=== PATIENT | male | born 1935 | race African-American/Black ===

== ENCOUNTER 2019-08-20 21:32 | Inpatient (IN) | payer MEDICARE, OTHER ==
[~2019-08-20] VITALS: Ht 177.8 cm; Wt 73.9 kg
[~2019-08-20 21:32] MED LIST: DOCU-150 MT; LINA5TAB MT; OMEP20CA14 MT; RANI150C12 MT; REPA0.5T5 MT; SEVE800T8 MT; TAMS-11 MT; WARF-53 MT
[2019-08-20 23:43] LABS: BASOPHILS % 2.1 % (0.0-2.0); EOSINOPHILS % 0.3 % (0.0-5.0); HEMATOCRIT. 35.4 % (42.0-52.0); HEMOGLOBIN. 11.9 g/dL (14.0-18.0); LYMPHOCYTES % 12.9 % (20.0-50.0); MEAN CORPUSCULAR HEMOGLOBIN 31.2 pg (28.0-32.0); MEAN CORPUSCULAR VOLUME 93.2 fL (80.0-94.0); MEAN PLATELET VOLUME 8.4 fl (7.4-10.4); MONOCYTES % 6.1 % (2.0-8.0); NEUTROPHILS % 78.6 % (40.0-76.0); PLATELET 118 x1000/uL (130-400); RED CELL DISTRIBUTION WIDTH 17.2 % (11.6-14.6)
[2019-08-20] MEDS ORDERED: DILTIAZEM HCL 120MG CAPSULE CD 24HR PO SCH (23:45)
[2019-08-20 23:47] LABS: CHLORIDE 96 mEq/L (98-107)
[2019-08-21] MEDS ORDERED: ACETAMINOPHEN 325MG TABLET PO PRN (07:30)
[2019-08-21] MEDS ORDERED: HYDROCODONE/ACETAMINOPHEN 5/325MG TABLET PO PRN (07:30)
[2019-08-21] MEDS ORDERED: CLONIDINE 0.1MG TABLET PO PRN (07:30)
[2019-08-21] MEDS ORDERED: ONDANSETRON HCL 4MG/2ML INJ IV PRN (07:30)
[2019-08-21] MEDS ORDERED: MAGNESIUM/ALUMINUM HYDROXIDE/SIMETHICONE 30ML UDC PO PRN (07:30)
[2019-08-21 08:45] VITALS: BP 130/65
[2019-08-21 12:00] VITALS: BP 104/45
[2019-08-21] MEDS: DILTIAZEM HCL 30MG TABLET PO SCH ×2 (15:46→21:17)
[2019-08-21 16:00] VITALS: BP 130/61
[2019-08-21 16:37] LABS: INR 1.5; PARTIAL THROMBOPLASTIN TIME 31.2 sec (23.4-31.0)
[2019-08-21 17:11] LABS: PHOSPHORUS 4.9 mg/dL (2.5-4.9)
[2019-08-21 20:00] VITALS: BP 134/80
[2019-08-21] MEDS ORDERED: WARFARIN SODIUM 5MG TABLET PO NR (20:00)
[2019-08-22] VITALS: BP 128/60
[2019-08-22] MEDS: IPRATROPIUM/ALBUTEROL 0.5-3(2.5)MG/3ML NEB HHN PRN ×3 (01:48→20:33)
[2019-08-22 04:00] VITALS: BP 143/68
[2019-08-22] MEDS: DILTIAZEM HCL 30MG TABLET PO SCH ×3 (05:34→21:05)
[2019-08-22 06:07] LABS: INR 1.5; PROTHROMBIN TIME 16.5 sec (9.6-11.0)
[2019-08-22 06:15] LABS: EOSINOPHILS % 0.2 % (0.0-5.0); HEMATOCRIT. 33.1 % (42.0-52.0); LYMPHOCYTES % 11.9 % (20.0-50.0); MEAN CORPUSCULAR HEMOGLOBIN 30.6 pg (28.0-32.0); MEAN CORPUSCULAR VOLUME 91.8 fL (80.0-94.0); MEAN PLATELET VOLUME 8.2 fl (7.4-10.4); MONOCYTES % 7.2 % (2.0-8.0); NEUTROPHILS % 78.7 % (40.0-76.0); PLATELET 126 x1000/uL (130-400); RED CELL DISTRIBUTION WIDTH 17.5 % (11.6-14.6)
[2019-08-22 07:10] LABS: PHOSPHORUS 5.5 mg/dL (2.5-4.9)
[2019-08-22 07:50] LABS: CLARITY URINE CLOUDY (CLEAR); COLOR URINE YELLOW (YELLOW); KETONES URINE NEGATIVE (NEGATIVE); LEUKOCYTE ESTERASE URINE 1+ (NEGATIVE); NITRITE URINE NEGATIVE (NEGATIVE); OCCULT BLOOD URINE NEGATIVE (NEGATIVE); PH URINE 8.5 (4.5-8.0); PROTEIN URINE 3+ (NEGATIVE); SPECIFIC GRAVITY URINE 1.014 (1.005-1.030); UROBILINOGEN URINE 0.2 E.U./dL (0.2-1.0)
[2019-08-22 08:00] VITALS: BP 138/66
[2019-08-22 12:00] VITALS: BP 137/57
[2019-08-22 12:56] LABS: BG BASE EXCESS 1.8 mmol/L (-2.0-2.0); BG CARBOXYHEMOGLOBIN 0.1 % (0.5-1.5); BG DEOXYHEMOGLOBIN 8.9 % (0.0-5.0); BG FRACTION INSPIRED OXYGEN 21; BG HCO3 ACT 25.1 mmol/L (22.0-26.0); BG METHEMOGLOBIN 0.3 % (0.0-1.5); BG OXYGEN SATURATION 91.1 % (92.0-98.5); BG OXYHEMOGLOBIN 90.7 % (94.0-97.0); BG PCO2 34.7 mmHg (35.0-45.0); BG PH 7.478 (7.350-7.450); BG PO2 62.9 mmHg (75.0-100.0); BG SAMPLE SITE RIGHT RADIAL; BG TOTAL HEMOGLOBIN 11.1 g/dL (12.0-18.0); BG VENT MODE ROOM AIR
[2019-08-22 16:00] VITALS: BP 141/68
[2019-08-22 17:24] LABS: INR 1.7; PROTHROMBIN TIME 18.5 sec (9.6-11.0)
[2019-08-22] MEDS ORDERED: WARFARIN SODIUM 5MG TABLET PO NR (18:00)
[2019-08-22 20:23] VITALS: BP 140/68
[2019-08-22] MEDS: ATORVASTATIN CALCIUM 20MG TABLET PO SCH (21:04)
[2019-08-22] MEDS ORDERED: LOSA100T32 PO (21:15)
[2019-08-22] MEDS ORDERED: LORA10TA7 PO (21:15)
[2019-08-23 00:15] VITALS: BP 129/56
[2019-08-23 04:00] VITALS: BP 139/64
[2019-08-23] MEDS: DILTIAZEM HCL 30MG TABLET PO SCH ×3 (06:15→21:36)
[2019-08-23 08:00] VITALS: BP 122/68
[2019-08-23 12:00] VITALS: BP 128/63
[2019-08-23 12:43] LABS: INR 1.9; PROTHROMBIN TIME 20.2 sec (9.6-11.0)
[2019-08-23 12:52] LABS: BASOPHILS % 2.2 % (0.0-2.0); EOSINOPHILS % 0.2 % (0.0-5.0); HEMATOCRIT. 31.1 % (42.0-52.0); HEMOGLOBIN. 10.3 g/dL (14.0-18.0); MEAN CORPUSCULAR HEMOGLOBIN 30.3 pg (28.0-32.0); MEAN PLATELET VOLUME 7.9 fl (7.4-10.4); MONOCYTES % 9.7 % (2.0-8.0); NEUTROPHILS % 79.9 % (40.0-76.0); PLATELET 111 x1000/uL (130-400); RED BLOOD CELL COUNT 3.38 mill/uL (4.7-6.1); RED CELL DISTRIBUTION WIDTH 17.5 % (11.6-14.6)
[2019-08-23 13:27] LABS: CHLORIDE 106 mEq/L (98-107)
[2019-08-23 13:36] LABS: PHOSPHORUS 3.7 mg/dL (2.5-4.9)
[2019-08-23 16:00] VITALS: BP 135/62
[2019-08-23] MEDS: LACTULOSE 20G/30ML UDC PO SCH ×3 (16:45→22:06)
[2019-08-23] MEDS: DOCUSATE SODIUM 100MG CAPSULE PO SCH (17:59)
[2019-08-23] MEDS ORDERED: WARFARIN SODIUM 5MG TABLET PO NR (18:00)
[2019-08-23 18:26] LABS: T4 FREE 1.14 ng/dL (0.76-1.46)
[2019-08-23 20:50] VITALS: BP 143/62
[2019-08-23] MEDS: POLYETHYLENE GLYCOL 3350 (17GM) 1 DOSE PACK PO SCH (21:36)
[2019-08-23] MEDS: ATORVASTATIN CALCIUM 20MG TABLET PO SCH (21:36)
[2019-08-24] VITALS (7 sets, daily range): BP systolic 132–146; BP diastolic 62–74
[2019-08-24] MEDS: DILTIAZEM HCL 30MG TABLET PO SCH ×3 (06:11→21:58)
[2019-08-24 07:06] LABS: INR 1.7; PROTHROMBIN TIME 18.4 sec (9.6-11.0)
[2019-08-24 07:21] LABS: BASOPHILS % 3.3 % (0.0-2.0); EOSINOPHILS % 0.6 % (0.0-5.0); HEMATOCRIT. 32.6 % (42.0-52.0); HEMOGLOBIN. 10.9 g/dL (14.0-18.0); MEAN CORPUSCULAR HEMOGLOBIN 30.8 pg (28.0-32.0); MEAN CORPUSCULAR VOLUME 92.2 fL (80.0-94.0); MONOCYTES % 8.5 % (2.0-8.0); NEUTROPHILS % 76.6 % (40.0-76.0); RED BLOOD CELL COUNT 3.54 mill/uL (4.7-6.1); RED CELL DISTRIBUTION WIDTH 16.9 % (11.6-14.6)
[2019-08-24 08:00] LABS: CHLORIDE 105 mEq/L (98-107)
[2019-08-24 08:09] LABS: PHOSPHORUS 4.9 mg/dL (2.5-4.9)
[2019-08-24] MEDS: DOCUSATE SODIUM 100MG CAPSULE PO SCH ×2 (08:16→17:14)
[2019-08-24 11:11] LABS: PLATELET 115 x1000/uL (130-400)
[2019-08-24 16:19] LABS: HEPATITIS B SURFACE ANTIGEN NEGATIVE
[2019-08-24 16:48] LABS: HEPATITIS A AB IGM NEGATIVE (NEGATIVE)
[2019-08-24] MEDS ORDERED: WARFARIN SODIUM 3MG TABLET PO NR (18:00)
[2019-08-24] MEDS: POLYETHYLENE GLYCOL 3350 (17GM) 1 DOSE PACK PO SCH (21:58)
[2019-08-24] MEDS: ATORVASTATIN CALCIUM 20MG TABLET PO SCH (21:58)
[2019-08-28] MEDS ORDERED: ATOR20TA PO (10:39)
[2019-08-28] MEDS ORDERED: POLY17PO3 PO (10:39)
[2019-08-28] MEDS ORDERED: DILT30TA38 PO (10:39)
== END 2019-08-24 22:40 | DRG 308 ==
LOC: ER 21:32 → 5WST 08-21 01:23 → EDBEDREQDT 08-21 01:25 → EDBEDREQ 08-21 01:25 → EDBEDREQTM 08-21 01:25 → ENRESERV 08-21 07:34 → 6WST 08-21 15:55
PROVIDERS: ADMIT Internal Medicine; ATTEND Internal Medicine
PROC: 5A1D70Z Performance of Urinary Filtration, Intermittent, Less than 6 Hours Per Day (ICD-10-PCS; principal; 2019-08-22)
PROC: 5A1D70Z Performance of Urinary Filtration, Intermittent, Less than 6 Hours Per Day (ICD-10-PCS; 2019-08-23)
PROC: 5A1D70Z Performance of Urinary Filtration, Intermittent, Less than 6 Hours Per Day (ICD-10-PCS; 2019-08-24)
DX: I47.1 Supraventricular tachycardia (principal); J96.00 Acute respiratory failure, unspecified whether with hypoxia or hypercapnia; N18.6 End stage renal disease; I13.2 Hypertensive heart and chronic kidney disease with heart failure and with stage 5 chronic kidney disease, or end stage renal disease; I50.20 Unspecified systolic (congestive) heart failure; D68.59 Other primary thrombophilia; E87.1 Hypo-osmolality and hyponatremia; N39.0 Urinary tract infection, site not specified; I42.9 Cardiomyopathy, unspecified; D69.6 Thrombocytopenia, unspecified; E11.22 Type 2 diabetes mellitus with diabetic chronic kidney disease; E11.51 Type 2 diabetes mellitus with diabetic peripheral angiopathy without gangrene; E11.621 Type 2 diabetes mellitus with foot ulcer; E11.65 Type 2 diabetes mellitus with hyperglycemia; E78.00 Pure hypercholesterolemia, unspecified; E78.5 Hyperlipidemia, unspecified; K21.9 Gastro-esophageal reflux disease without esophagitis; L97.529 Non-pressure chronic ulcer of other part of left foot with unspecified severity; N40.0 Benign prostatic hyperplasia without lower urinary tract symptoms; H53.002 Unspecified amblyopia, left eye; D63.8 Anemia in other chronic diseases classified elsewhere; R53.81 Other malaise; D64.9 Anemia, unspecified; R26.89 Other abnormalities of gait and mobility; I08.0 Rheumatic disorders of both mitral and aortic valves; M48.061 Spinal stenosis, lumbar region without neurogenic claudication; M48.02 Spinal stenosis, cervical region; Z99.2 Dependence on renal dialysis; Z86.718 Personal history of other venous thrombosis and embolism; Z82.49 Family history of ischemic heart disease and other diseases of the circulatory system; Z79.01 Long term (current) use of anticoagulants; Z79.899 Other long term (current) drug therapy; Z82.3 Family history of stroke; Z79.51 Long term (current) use of inhaled steroids
CPT/HCPCS: 36415; 36600; 70551; 71045; 72141; 72148; 73630; 76700; 80048; 80053; 80061; 81003; 82375; 82550; 82607; 82746; 82805; 83036; 83735; 83880; 84100; 84439; 84443; 84481; 84484; 85025; 86705; 86709; 86803; 87340; 92523; 92610; 93005; 93306; 94640; 97162; 97166; 99291

== ENCOUNTER 2019-08-28 12:19 | Inpatient (IN) | payer MEDICARE, OTHER ==
[~2019-08-28] VITALS: Ht 177.8 cm; Wt 76.7 kg
[2019-08-28 12:00] VITALS: BP 124/55
[~2019-08-28 12:19] MED LIST changes: +ATOR20TA PO; +DILT30TA38 PO; +LORA10TA7 PO; +LOSA100T32 PO; +POLY17PO3 PO; -RANI150C12 MT; -REPA0.5T5 MT
[2019-08-28 13:33] VITALS: BP 124/55
[2019-08-28 16:00] VITALS: BP 133/59
[2019-08-28] MEDS ORDERED: GUAIFENESIN 200MG/10ML SUGAR FREE UDC PO PRN (17:45)
[2019-08-28] MEDS ORDERED: CLONIDINE 0.1MG TABLET PO PRN (17:45)
[2019-08-28] MEDS ORDERED: ACETAMINOPHEN 325MG TABLET PO PRN (17:45)
[2019-08-28] MEDS ORDERED: LORAZEPAM 0.5MG TABLET PO PRN (17:45)
[2019-08-28] MEDS ORDERED: HYDROCODONE/ACETAMINOPHEN 5/325MG TABLET PO PRN (17:45)
[2019-08-28] MEDS ORDERED: ONDANSETRON HCL 4MG/2ML INJ IV PRN (17:45)
[2019-08-28 18:51] LABS: HEMATOCRIT. 28.8 % (42.0-52.0); HEMOGLOBIN. 9.7 g/dL (14.0-18.0); MEAN CORPUSCULAR HEMOGLOBIN 30.3 pg (28.0-32.0); MEAN CORPUSCULAR VOLUME 89.6 fL (80.0-94.0); MEAN PLATELET VOLUME 8.8 fl (7.4-10.4); PLATELET 102 x1000/uL (130-400); RED BLOOD CELL COUNT 3.21 mill/uL (4.7-6.1); RED CELL DISTRIBUTION WIDTH 16.9 % (11.6-14.6)
[2019-08-28 18:54] LABS: INR 2.7; PROTHROMBIN TIME 28.1 sec (9.6-11.0)
[2019-08-28 20:00] VITALS: BP 120/57
[2019-08-28 20:26] LABS: PLATELET ESTIMATE DECREASED
[2019-08-28] MEDS ORDERED: POLYETHYLENE GLYCOL 3350 (17GM) 1 DOSE PACK PO SCH (21:00)
[2019-08-28] MEDS ORDERED: ATORVASTATIN CALCIUM 20MG TABLET PO SCH (21:00)
[2019-08-28] MEDS: DILTIAZEM HCL 30MG TABLET PO SCH (21:55)
[2019-08-29] VITALS (52 sets, daily range): BP systolic 52–259; BP diastolic 31–119
[2019-08-29] MEDS ORDERED: DEXT 5%/LACTATED RINGERS 1,000 ML IV SCH
[2019-08-29] MEDS: DILTIAZEM HCL 30MG TABLET PO SCH ×2 (05:32→14:00)
[2019-08-29] MEDS ORDERED: NORMAL SALINE 0.9% 10 ML SYR ONE (08:46)
[2019-08-29] MEDS ORDERED: THROMBIN (BOVINE) 5000 UNITS/VIAL TOP ONE ×2 (08:46→08:47)
[2019-08-29] MEDS ORDERED: LIDOCAINE HCL/EPINEPHRINE 1%-EPI 1:100,000 20 ML VIAL ONE (08:47)
[2019-08-29] MEDS ORDERED: BACITRACIN 50,000 UNITS/VIAL ONE (08:47)
[2019-08-29] MEDS ORDERED: LIDOCAINE HCL 1% 20ML VIAL (Pyxis) INJ ONE (08:53)
[2019-08-29] MEDS ORDERED: DOCUSATE SODIUM 100MG CAPSULE PO SCH (09:00)
[2019-08-29] MEDS ORDERED: MIDAZOLAM HCL 2 MG/2 ML VIAL ONE (12:09)
[2019-08-29] MEDS ORDERED: NEOSTIGMINE METHYLSULFATE 1MG/ML 10 ML VIAL ONE ×2 (12:09→16:15)
[2019-08-29] MEDS ORDERED: PROPOFOL 200MG/20ML VIAL IV ONE ×2 (12:09→16:45)
[2019-08-29] MEDS ORDERED: FENTANYL CITRATE/PF 50MCG/ML 2ML VIAL ONE (12:09)
[2019-08-29] MEDS ORDERED: ROCURONIUM BROMIDE 10MG/ML VIAL 5ML IV ONE (12:09)
[2019-08-29] MEDS ORDERED: GLYCOPYRROLATE 0.2 MG/ML 2ML VIAL ONE ×2 (12:10→16:16)
[2019-08-29] MEDS ORDERED: HYDROMORPHONE HCL/PF 2MG/ML (OR) ONE (12:39)
[2019-08-29] MEDS ORDERED: EPHEDRINE SULFATE 50MG/ML VIAL ONE (12:56)
[2019-08-29] MEDS ORDERED: LABETALOL HCL 5MG/ML VIAL 20ML IV ONE (12:56)
[2019-08-29] MEDS ORDERED: LIDOCAINE HCL/PF 1% 10 MG/ML 5ML VIAL ONE (12:56)
[2019-08-29] MEDS ORDERED: CEFAZOLIN SODIUM 1000MG/VIAL ONE (12:56)
[2019-08-29] MEDS ORDERED: SODIUM CHLORIDE 0.9% 10ML VIAL ONE (12:56)
[2019-08-29] MEDS: MORPHINE SULFATE 4 MG/ML CPJ (NOT FOR IM USE) IV PRN (14:53)
[2019-08-29] MEDS: DEXT 5%/0.9% NACL 1,000 ML IV SCH (15:10)
[2019-08-29] MEDS: NICARDIPINE 100 MG in SODIUM CHLORIDE 0.9% 60 ML IV PRN (15:12)
[2019-08-29] MEDS ORDERED: NALOXONE HCL 0.4 MG/ML 1ML VIAL ONE (15:49)
[2019-08-29 17:33] LABS: BG BASE EXCESS -3.4 mmol/L (-2.0-2.0); BG CARBOXYHEMOGLOBIN 0.3 % (0.5-1.5); BG DEOXYHEMOGLOBIN 2.3 % (0.0-5.0); BG FRACTION INSPIRED OXYGEN 60; BG HCO3 ACT 22.5 mmol/L (22.0-26.0); BG METHEMOGLOBIN 0.1 % (0.0-1.5); BG OXYGEN SATURATION 97.7 % (92.0-98.5); BG OXYHEMOGLOBIN 97.3 % (94.0-97.0); BG PCO2 44.1 mmHg (35.0-45.0); BG PH 7.325 (7.350-7.450); BG PO2 121.5 mmHg (75.0-100.0); BG SAMPLE SITE A-LINE; BG TIDAL VOLUME(mL) 500 mL; BG TOTAL HEMOGLOBIN 10.7 g/dL (12.0-18.0); BG VENT MODE VENT - A/C; BG VENT RATE 12 set
[2019-08-29] MEDS: PROPOFOL 10MG/ML 100ML 100 ML IV PRN (17:50)
[2019-08-29 20:30] LABS: INR 1.5; PROTHROMBIN TIME 16.1 sec (9.6-11.0)
[2019-08-29] MEDS ORDERED: CEFAZOLIN SODIUM 1000MG/VIAL IV SCH (22:00)
[2019-08-29] MEDS ORDERED: CEFAZOLIN 1000MG PREMIX 50 ML IV SCH (22:00)
[2019-08-30] VITALS (113 sets, daily range): BP systolic 104–222; BP diastolic 21–121
[2019-08-30] MEDS: PROPOFOL 10MG/ML 100ML 100 ML IV PRN ×3 (01:14→18:46)
[2019-08-30 05:34] LABS: BASOPHILS % 1.4 % (0.0-2.0); EOSINOPHILS % 0.6 % (0.0-5.0); HEMATOCRIT. 25.4 % (42.0-52.0); HEMOGLOBIN. 8.6 g/dL (14.0-18.0); LYMPHOCYTES % 7.6 % (20.0-50.0); MEAN CORPUSCULAR HEMOGLOBIN 30.8 pg (28.0-32.0); MEAN CORPUSCULAR VOLUME 90.7 fL (80.0-94.0); MEAN PLATELET VOLUME 8.7 fl (7.4-10.4); MONOCYTES % 9.3 % (2.0-8.0); NEUTROPHILS % 81.1 % (40.0-76.0); PLATELET 84 x1000/uL (130-400); RED CELL DISTRIBUTION WIDTH 16.4 % (11.6-14.6)
[2019-08-30 05:35] LABS: CHLORIDE 104 mEq/L (98-107)
[2019-08-30 05:45] LABS: INR 1.4; PROTHROMBIN TIME 14.8 sec (9.6-11.0)
[2019-08-30] MEDS: NICARDIPINE 100 MG in SODIUM CHLORIDE 0.9% 60 ML IV PRN ×2 (06:15→18:47)
[2019-08-30 07:34] LABS: BG BASE EXCESS -3.4 mmol/L (-2.0-2.0); BG CARBOXYHEMOGLOBIN 0.3 % (0.5-1.5); BG DEOXYHEMOGLOBIN 1.3 % (0.0-5.0); BG FRACTION INSPIRED OXYGEN 60; BG HCO3 ACT 21.1 mmol/L (22.0-26.0); BG METHEMOGLOBIN 0.5 % (0.0-1.5); BG OXYGEN SATURATION 98.7 % (92.0-98.5); BG OXYHEMOGLOBIN 97.9 % (94.0-97.0); BG PCO2 35.9 mmHg (35.0-45.0); BG PH 7.387 (7.350-7.450); BG PO2 167.9 mmHg (75.0-100.0); BG SAMPLE SITE A-LINE; BG TIDAL VOLUME(mL) 500 mL; BG TOTAL HEMOGLOBIN 11.6 g/dL (12.0-18.0); BG VENT MODE VENT - A/C; BG VENT RATE 12 set
[2019-08-30] MEDS: DEXT 5%/0.9% NACL 1,000 ML IV SCH (11:26)
[2019-08-30] MEDS: PIPERACILLIN/TAZOBACTAM 2.25 G in DEXTROSE 5% WATER 50 ML IV SCH ×3 (13:54→23:58)
[2019-08-30] MEDS: MORPHINE SULFATE 4 MG/ML CPJ (NOT FOR IM USE) IV PRN (19:48)
[2019-08-31] VITALS (88 sets, daily range): BP systolic 108–199; BP diastolic 34–155
[2019-08-31] MEDS: PROPOFOL 10MG/ML 100ML 100 ML IV PRN ×2 (00:02→08:44)
[2019-08-31] MEDS: NICARDIPINE 100 MG in SODIUM CHLORIDE 0.9% 60 ML IV PRN ×2 (05:23→16:05)
[2019-08-31] MEDS: PIPERACILLIN/TAZOBACTAM 2.25 G in DEXTROSE 5% WATER 50 ML IV SCH ×4 (05:34→23:16)
[2019-08-31] MEDS: DEXT 5%/0.9% NACL 1,000 ML IV SCH (05:34)
[2019-08-31] MEDS: IPRATROPIUM/ALBUTEROL 0.5-3(2.5)MG/3ML NEB HHN PRN (08:31)
[2019-08-31] MEDS: DIPHENHYDRAMINE 50MG/ML VIAL IV PRN ×2 (10:57→14:39)
[2019-08-31] MEDS: IPRATROPIUM/ALBUTEROL 0.5-3(2.5)MG/3ML NEB HHN SCH ×2 (12:41→20:45)
[2019-08-31 14:02] LABS: BG BASE EXCESS -1.9 mmol/L (-2.0-2.0); BG CARBOXYHEMOGLOBIN 0.3 % (0.5-1.5); BG DEOXYHEMOGLOBIN 4.6 % (0.0-5.0); BG FRACTION INSPIRED OXYGEN 40; BG HCO3 ACT 21.5 mmol/L (22.0-26.0); BG OXYGEN SATURATION 95.4 % (92.0-98.5); BG OXYHEMOGLOBIN 95.1 % (94.0-97.0); BG PCO2 31.5 mmHg (35.0-45.0); BG PH 7.451 (7.350-7.450); BG PO2 78.5 mmHg (75.0-100.0); BG PRESSURE SUPPORT 8; BG SAMPLE SITE A-LINE; BG TOTAL HEMOGLOBIN 10.5 g/dL (12.0-18.0); BG VENT MODE VENT - CPAP
[2019-08-31] MEDS ORDERED: PROPOFOL 10MG/ML 100ML 100 ML IV PRN (14:30)
[2019-08-31] MEDS: MORPHINE SULFATE 4 MG/ML CPJ (NOT FOR IM USE) IV PRN (14:40)
[2019-08-31] MEDS: DIPHENHYDRAMINE 50MG/ML VIAL IV SCH ×2 (20:23→23:17)
[2019-09-01] VITALS (117 sets, daily range): BP systolic 96–209; BP diastolic 10–139
[2019-09-01] MEDS: IPRATROPIUM/ALBUTEROL 0.5-3(2.5)MG/3ML NEB HHN SCH ×5 (00:18→19:50)
[2019-09-01] MEDS: DIPHENHYDRAMINE 50MG/ML VIAL IV SCH ×4 (03:20→16:11)
[2019-09-01] MEDS: DEXT 5%/0.9% NACL 1,000 ML IV SCH ×2 (05:00→23:29)
[2019-09-01] MEDS: PIPERACILLIN/TAZOBACTAM 2.25 G in DEXTROSE 5% WATER 50 ML IV SCH ×4 (05:02→23:29)
[2019-09-01 05:59] LABS: HEMATOCRIT. 23.5 % (42.0-52.0); MEAN CORPUSCULAR HEMOGLOBIN 30.6 pg (28.0-32.0); MEAN CORPUSCULAR VOLUME 90.3 fL (80.0-94.0); MEAN PLATELET VOLUME 9.1 fl (7.4-10.4); PLATELET 84 x1000/uL (130-400); RED CELL DISTRIBUTION WIDTH 16.7 % (11.6-14.6)
[2019-09-01 06:04] LABS: CHLORIDE 105 mEq/L (98-107)
[2019-09-01 06:11] LABS: PHOSPHORUS 6.3 mg/dL (2.5-4.9)
[2019-09-01 06:12] LABS: LDL CHOLESTEROL 51 mg/dL (5-100)
[2019-09-01 06:14] LABS: HDL CHOLESTEROL 31 mg/dL (40-59)
[2019-09-01 09:42] LABS: PLATELET ESTIMATE DECREASED
[2019-09-01] MEDS: ACETYLCYSTEINE 100MG/ML 10% VIAL 4ML INH SCH ×2 (10:00→19:51)
[2019-09-01] MEDS: CARVEDILOL 3.125 MG TABLET PO SCH ×2 (10:09→20:30)
[2019-09-01] MEDS ORDERED: MORPHINE SULFATE 2 MG/ML CPJ (NOT FOR IM USE) IV SCH (10:30)
[2019-09-01 11:11] LABS: BG BASE EXCESS -6.4 mmol/L (-2.0-2.0); BG CARBOXYHEMOGLOBIN 0.3 % (0.5-1.5); BG DEOXYHEMOGLOBIN 11.2 % (0.0-5.0); BG FRACTION INSPIRED OXYGEN 35; BG HCO3 ACT 19.9 mmol/L (22.0-26.0); BG METHEMOGLOBIN 0.1 % (0.0-1.5); BG OXYGEN SATURATION 88.8 % (92.0-98.5); BG OXYHEMOGLOBIN 88.4 % (94.0-97.0); BG PCO2 42.4 mmHg (35.0-45.0); BG PH 7.289 (7.350-7.450); BG PO2 66.1 mmHg (75.0-100.0); BG PRESSURE SUPPORT 8; BG SAMPLE SITE A-LINE; BG TOTAL HEMOGLOBIN 11.2 g/dL (12.0-18.0); BG VENT MODE VENT - CPAP
[2019-09-01] MEDS: MORPHINE SULFATE 4 MG/ML CPJ (NOT FOR IM USE) IV PRN (20:31)
[2019-09-02] VITALS (94 sets, daily range): BP systolic 61–205; BP diastolic 32–160
[2019-09-02] MEDS: MORPHINE SULFATE 4 MG/ML CPJ (NOT FOR IM USE) IV PRN (00:18)
[2019-09-02] MEDS: DIPHENHYDRAMINE 50MG/ML VIAL IV SCH ×6 (00:39→20:42)
[2019-09-02] MEDS: IPRATROPIUM/ALBUTEROL 0.5-3(2.5)MG/3ML NEB HHN SCH ×4 (01:52→20:20)
[2019-09-02] MEDS: NICARDIPINE 100 MG in SODIUM CHLORIDE 0.9% 60 ML IV PRN (03:22)
[2019-09-02 05:47] LABS: BASOPHILS % 3.7 % (0.0-2.0); EOSINOPHILS % 0.3 % (0.0-5.0); HEMATOCRIT. 25.8 % (42.0-52.0); HEMOGLOBIN. 8.6 g/dL (14.0-18.0); LYMPHOCYTES % 8.9 % (20.0-50.0); MEAN CORPUSCULAR HEMOGLOBIN 30.3 pg (28.0-32.0); MEAN PLATELET VOLUME 8.6 fl (7.4-10.4); MONOCYTES % 8.5 % (2.0-8.0); NEUTROPHILS % 78.6 % (40.0-76.0); PLATELET 96 x1000/uL (130-400); RED BLOOD CELL COUNT 2.83 mill/uL (4.7-6.1); RED CELL DISTRIBUTION WIDTH 16.8 % (11.6-14.6)
[2019-09-02 06:01] LABS: PHOSPHORUS 5.9 mg/dL (2.5-4.9)
[2019-09-02] MEDS: PIPERACILLIN/TAZOBACTAM 2.25 G in DEXTROSE 5% WATER 50 ML IV SCH ×3 (06:02→17:59)
[2019-09-02] MEDS: CARVEDILOL 3.125 MG TABLET PO SCH (08:37)
[2019-09-02] MEDS: ACETYLCYSTEINE 100MG/ML 10% VIAL 4ML INH SCH ×2 (08:53→21:19)
[2019-09-02] MEDS: METHYLPREDNISOLONE SOD SUCC 40 MG/ML VIAL IV SCH ×2 (09:54→15:47)
[2019-09-02] MEDS ORDERED: HYDRALAZINE 20MG/ML VIAL IV PRN (10:00)
[2019-09-02] MEDS ORDERED: CARVEDILOL 6.25 MG TABLET PO SCH (10:00)
[2019-09-02 10:40] LABS: BG BASE EXCESS -3.8 mmol/L (-2.0-2.0); BG CPAP (cmH2O) 0 cm(H2O); BG DEOXYHEMOGLOBIN 6.4 % (0.0-5.0); BG HCO3 ACT 20.1 mmol/L (22.0-26.0); BG METHEMOGLOBIN 0.4 % (0.0-1.5); BG OXYGEN SATURATION 93.6 % (92.0-98.5); BG OXYHEMOGLOBIN 93.2 % (94.0-97.0); BG PCO2 31.6 mmHg (35.0-45.0); BG PH 7.422 (7.350-7.450); BG PO2 72.2 mmHg (75.0-100.0); BG SAMPLE SITE A-LINE; BG TOTAL HEMOGLOBIN 7.8 g/dL (12.0-18.0); BG VENT MODE VENT - CPAP
[2019-09-02] MEDS: LOSARTAN POTASSIUM 25 MG TABLET PO SCH (11:05)
[2019-09-02] MEDS ORDERED: RACEPINEPHRINE 2.25% 0.5ML NEB VIAL HHN NR (11:15)
[2019-09-02] MEDS ORDERED: RACEPINEPHRINE 2.25% 0.5ML NEB VIAL HHN PRN (11:15)
[2019-09-02] MEDS: DEXT 5%/0.9% NACL 1,000 ML IV SCH (17:59)
[2019-09-02] MEDS: CARVEDILOL 12.5MG TABLET PO SCH (20:43)
[2019-09-03] VITALS (138 sets, daily range): BP systolic -2–170; BP diastolic -2–80
[2019-09-03] MEDS: DIPHENHYDRAMINE 50MG/ML VIAL IV SCH ×7 (00:29→23:16)
[2019-09-03] MEDS: METHYLPREDNISOLONE SOD SUCC 40 MG/ML VIAL IV SCH ×4 (00:29→21:02)
[2019-09-03] MEDS: PIPERACILLIN/TAZOBACTAM 2.25 G in DEXTROSE 5% WATER 50 ML IV SCH ×5 (00:37→23:16)
[2019-09-03] MEDS: IPRATROPIUM/ALBUTEROL 0.5-3(2.5)MG/3ML NEB HHN SCH ×4 (01:01→20:41)
[2019-09-03 05:38] LABS: HEMATOCRIT. 24.3 % (42.0-52.0); HEMOGLOBIN. 8.1 g/dL (14.0-18.0); MEAN CORPUSCULAR HEMOGLOBIN 30.4 pg (28.0-32.0); MEAN CORPUSCULAR VOLUME 91.7 fL (80.0-94.0); MEAN PLATELET VOLUME 8.9 fl (7.4-10.4); PLATELET 103 x1000/uL (130-400); RED BLOOD CELL COUNT 2.65 mill/uL (4.7-6.1); RED CELL DISTRIBUTION WIDTH 16.6 % (11.6-14.6)
[2019-09-03 07:48] LABS: PLATELET ESTIMATE SLIGHTLY DECREASED
[2019-09-03] MEDS: ACETYLCYSTEINE 100MG/ML 10% VIAL 4ML INH SCH ×2 (07:59→20:41)
[2019-09-03] MEDS: CARVEDILOL 12.5MG TABLET PO SCH ×2 (09:00→20:58)
[2019-09-03 11:25] LABS: BG BASE EXCESS -1.1 mmol/L (-2.0-2.0); BG CARBOXYHEMOGLOBIN 0.3 % (0.5-1.5); BG FRACTION INSPIRED OXYGEN 35; BG HCO3 ACT 22.3 mmol/L (22.0-26.0); BG METHEMOGLOBIN 0.3 % (0.0-1.5); BG OXYHEMOGLOBIN 97.4 % (94.0-97.0); BG PCO2 32.3 mmHg (35.0-45.0); BG PH 7.457 (7.350-7.450); BG PO2 113.5 mmHg (75.0-100.0); BG SAMPLE SITE A-LINE; BG TOTAL HEMOGLOBIN 9.1 g/dL (12.0-18.0); BG VENT MODE MASK - AEROSOL
[2019-09-03] MEDS: LOSARTAN POTASSIUM 25 MG TABLET PO SCH (12:19)
[2019-09-03] MEDS: DEXT 5%/0.9% NACL 1,000 ML IV SCH ×2 (13:58→22:59)
[2019-09-03] MEDS: EPOETIN ALFA 4000UNITS/ML VIAL SUBCUT SCH (20:58)
[2019-09-04] VITALS (88 sets, daily range): BP systolic 95–229; BP diastolic 29–95
[2019-09-04] MEDS: IPRATROPIUM/ALBUTEROL 0.5-3(2.5)MG/3ML NEB HHN SCH ×4 (01:58→19:53)
[2019-09-04] MEDS: DIPHENHYDRAMINE 50MG/ML VIAL IV SCH ×6 (03:13→23:37)
[2019-09-04 05:32] LABS: HEMATOCRIT. 23.3 % (42.0-52.0); HEMOGLOBIN. 7.8 g/dL (14.0-18.0); MEAN CORPUSCULAR HEMOGLOBIN 30.5 pg (28.0-32.0); MEAN CORPUSCULAR VOLUME 90.9 fL (80.0-94.0); MEAN PLATELET VOLUME 8.8 fl (7.4-10.4); PLATELET 97 x1000/uL (130-400); RED BLOOD CELL COUNT 2.56 mill/uL (4.7-6.1); RED CELL DISTRIBUTION WIDTH 16.8 % (11.6-14.6)
[2019-09-04] MEDS: PIPERACILLIN/TAZOBACTAM 2.25 G in DEXTROSE 5% WATER 50 ML IV SCH ×4 (06:01→23:37)
[2019-09-04] MEDS: METHYLPREDNISOLONE SOD SUCC 40 MG/ML VIAL IV SCH (06:01)
[2019-09-04 08:20] LABS: BG BASE EXCESS -3.5 mmol/L (-2.0-2.0); BG CARBOXYHEMOGLOBIN 0.2 % (0.5-1.5); BG DEOXYHEMOGLOBIN 2.9 % (0.0-5.0); BG FRACTION INSPIRED OXYGEN 28; BG HCO3 ACT 20.9 mmol/L (22.0-26.0); BG METHEMOGLOBIN 0.1 % (0.0-1.5); BG OXYGEN SATURATION 97.1 % (92.0-98.5); BG OXYHEMOGLOBIN 96.8 % (94.0-97.0); BG PH 7.406 (7.350-7.450); BG PO2 105.7 mmHg (75.0-100.0); BG SAMPLE SITE A-LINE; BG TOTAL HEMOGLOBIN 6.8 g/dL (12.0-18.0); BG VENT MODE NASAL CANNULA
[2019-09-04] MEDS: ACETYLCYSTEINE 100MG/ML 10% VIAL 4ML INH SCH (08:31)
[2019-09-04] MEDS: CARVEDILOL 12.5MG TABLET PO SCH ×2 (09:00→20:57)
[2019-09-04 09:52] LABS: PLATELET ESTIMATE DECREASED
[2019-09-04] MEDS ORDERED: DEXTROSE 50% WATER 50ML SYRINGE IV PRN (10:00)
[2019-09-04] MEDS: BLOOD SUGAR DIAGNOSTIC STRIP TEST SCH ×3 (11:30→20:47)
[2019-09-04] MEDS: LOSARTAN POTASSIUM 25 MG TABLET PO SCH (13:39)
[2019-09-04] MEDS: INSULIN LISPRO 100 UNITS/ML SUBCUT SCH ×3 (13:43→20:56)
[2019-09-05] VITALS (26 sets, daily range): BP systolic 106–134; BP diastolic 36–102
[2019-09-05] MEDS: IPRATROPIUM/ALBUTEROL 0.5-3(2.5)MG/3ML NEB HHN SCH ×4 (00:13→20:44)
[2019-09-05] MEDS: ACETYLCYSTEINE 100MG/ML 10% VIAL 4ML INH SCH ×3 (00:13→20:45)
[2019-09-05] MEDS: DIPHENHYDRAMINE 50MG/ML VIAL IV SCH ×5 (03:06→20:13)
[2019-09-05 05:32] LABS: BASOPHILS % 0.1 % (0.0-2.0); HEMOGLOBIN. 7.9 g/dL (14.0-18.0); LYMPHOCYTES % 9.1 % (20.0-50.0); MEAN CORPUSCULAR HEMOGLOBIN 30.5 pg (28.0-32.0); MEAN CORPUSCULAR VOLUME 91.9 fL (80.0-94.0); MEAN PLATELET VOLUME 9.3 fl (7.4-10.4); NEUTROPHILS % 80.8 % (40.0-76.0); PLATELET 99 x1000/uL (130-400); RED BLOOD CELL COUNT 2.61 mill/uL (4.7-6.1); RED CELL DISTRIBUTION WIDTH 16.7 % (11.6-14.6)
[2019-09-05] MEDS: PIPERACILLIN/TAZOBACTAM 2.25 G in DEXTROSE 5% WATER 50 ML IV SCH ×3 (05:43→22:14)
[2019-09-05] MEDS: BLOOD SUGAR DIAGNOSTIC STRIP TEST SCH ×5 (05:43→22:01)
[2019-09-05] MEDS: INSULIN LISPRO 100 UNITS/ML SUBCUT SCH ×4 (05:44→22:10)
[2019-09-05 06:43] LABS: PHOSPHORUS 8.6 mg/dL (2.5-4.9)
[2019-09-05] MEDS: CARVEDILOL 12.5MG TABLET PO SCH ×2 (08:45→22:09)
[2019-09-05] MEDS ORDERED: METHYLPREDNISOLONE SOD SUCC 40 MG/ML VIAL IV SCH (09:00)
[2019-09-05] MEDS ORDERED: PREDNISONE 10MG TABLET PO SCH (09:00)
[2019-09-05] MEDS: SEVELAMER CARBONATE 800 MG TABLET PO SCH ×2 (12:26→17:50)
[2019-09-05] MEDS: LOSARTAN POTASSIUM 25 MG TABLET PO SCH (12:26)
[2019-09-06] VITALS: BP 125/58
[2019-09-06] MEDS: DIPHENHYDRAMINE 50MG/ML VIAL IV SCH ×7 (00:20→23:55)
[2019-09-06] MEDS: IPRATROPIUM/ALBUTEROL 0.5-3(2.5)MG/3ML NEB HHN SCH ×4 (02:19→21:18)
[2019-09-06 04:00] VITALS: BP 123/50
[2019-09-06] MEDS: PIPERACILLIN/TAZOBACTAM 2.25 G in DEXTROSE 5% WATER 50 ML IV SCH (06:33)
[2019-09-06] MEDS: BLOOD SUGAR DIAGNOSTIC STRIP TEST SCH ×4 (06:40→21:00)
[2019-09-06 07:40] LABS: BASOPHILS % 0.3 % (0.0-2.0); EOSINOPHILS % 0.1 % (0.0-5.0); HEMATOCRIT. 24.8 % (42.0-52.0); HEMOGLOBIN. 8.5 g/dL (14.0-18.0); LYMPHOCYTES % 9.5 % (20.0-50.0); MEAN CORPUSCULAR HEMOGLOBIN 30.8 pg (28.0-32.0); MEAN CORPUSCULAR VOLUME 89.9 fL (80.0-94.0); MONOCYTES % 13.5 % (2.0-8.0); NEUTROPHILS % 76.6 % (40.0-76.0); RED BLOOD CELL COUNT 2.76 mill/uL (4.7-6.1); RED CELL DISTRIBUTION WIDTH 16.6 % (11.6-14.6)
[2019-09-06 08:00] VITALS: BP 116/46
[2019-09-06] MEDS: CARVEDILOL 12.5MG TABLET PO SCH ×2 (08:50→20:49)
[2019-09-06] MEDS: SEVELAMER CARBONATE 800 MG TABLET PO SCH ×3 (08:50→17:21)
[2019-09-06] MEDS: INSULIN LISPRO 100 UNITS/ML SUBCUT SCH ×4 (08:51→21:20)
[2019-09-06 09:39] LABS: PLATELET 94 x1000/uL (130-400)
[2019-09-06] MEDS: ACETYLCYSTEINE 100MG/ML 10% VIAL 4ML INH SCH (09:56)
[2019-09-06] MEDS: LOSARTAN POTASSIUM 25 MG TABLET PO SCH (11:21)
[2019-09-06] MEDS: ACETAMINOPHEN 325MG TABLET PO PRN ×2 (11:22→17:41)
[2019-09-06 12:00] VITALS: BP 114/51
[2019-09-06 13:57] LABS: CHLORIDE 100 mEq/L (98-107)
[2019-09-06 15:01] LABS: PHOSPHORUS 8.9 mg/dL (2.5-4.9)
[2019-09-06 16:00] VITALS: BP 121/42
[2019-09-06 20:00] VITALS: BP 128/63
[2019-09-06] MEDS: EPOETIN ALFA 4000UNITS/ML VIAL SUBCUT SCH (21:09)
[2019-09-07] VITALS: BP 125/67
[2019-09-07] MEDS: DIPHENHYDRAMINE 50MG/ML VIAL IV SCH ×5 (04:24→20:00)
[2019-09-07] MEDS: IPRATROPIUM/ALBUTEROL 0.5-3(2.5)MG/3ML NEB HHN SCH ×4 (04:25→20:58)
[2019-09-07 04:45] VITALS: BP 142/68
[2019-09-07] MEDS: BLOOD SUGAR DIAGNOSTIC STRIP TEST SCH ×4 (06:50→22:30)
[2019-09-07 07:24] LABS: BASOPHILS % 0.2 % (0.0-2.0); EOSINOPHILS % 1.4 % (0.0-5.0); HEMATOCRIT. 26.9 % (42.0-52.0); LYMPHOCYTES % 11.6 % (20.0-50.0); MEAN CORPUSCULAR HEMOGLOBIN 30.6 pg (28.0-32.0); MEAN CORPUSCULAR VOLUME 91.5 fL (80.0-94.0); MONOCYTES % 11.8 % (2.0-8.0); RED BLOOD CELL COUNT 2.95 mill/uL (4.7-6.1)
[2019-09-07 07:38] LABS: PLATELET 100 x1000/uL (130-400)
[2019-09-07 07:39] LABS: MEAN PLATELET VOLUME 9.6 fl (7.4-10.4)
[2019-09-07 08:00] VITALS: BP 124/59
[2019-09-07 08:25] LABS: PHOSPHORUS 8.6 mg/dL (2.5-4.9)
[2019-09-07] MEDS: SEVELAMER CARBONATE 800 MG TABLET PO SCH ×3 (10:02→18:55)
[2019-09-07] MEDS: CALCITRIOL 0.25MCG CAPSULE PO SCH (10:03)
[2019-09-07] MEDS: CARVEDILOL 12.5MG TABLET PO SCH ×2 (10:03→21:00)
[2019-09-07] MEDS: INSULIN LISPRO 100 UNITS/ML SUBCUT SCH ×4 (10:06→22:30)
[2019-09-07 12:00] VITALS: BP 127/56
[2019-09-07] MEDS: LOSARTAN POTASSIUM 25 MG TABLET PO SCH (13:57)
[2019-09-07] MEDS: ACETAMINOPHEN 325MG TABLET PO PRN (13:58)
[2019-09-07 16:00] VITALS: BP 122/53
[2019-09-07 20:00] VITALS: BP 111/51
[2019-09-08] VITALS: BP 103/84
[2019-09-08] MEDS: DIPHENHYDRAMINE 50MG/ML VIAL IV SCH ×7 (00:09→23:59)
[2019-09-08] MEDS: IPRATROPIUM/ALBUTEROL 0.5-3(2.5)MG/3ML NEB HHN SCH ×4 (01:36→20:51)
[2019-09-08 04:00] VITALS: BP 134/57
[2019-09-08] MEDS: BLOOD SUGAR DIAGNOSTIC STRIP TEST SCH ×4 (06:34→20:39)
[2019-09-08 07:22] LABS: BASOPHILS % 0.1 % (0.0-2.0); HEMATOCRIT. 27.7 % (42.0-52.0); HEMOGLOBIN. 9.4 g/dL (14.0-18.0); LYMPHOCYTES % 11.3 % (20.0-50.0); MEAN CORPUSCULAR HEMOGLOBIN 31.1 pg (28.0-32.0); MEAN CORPUSCULAR VOLUME 91.5 fL (80.0-94.0); MONOCYTES % 10.6 % (2.0-8.0); RED BLOOD CELL COUNT 3.03 mill/uL (4.7-6.1)
[2019-09-08] MEDS: INSULIN LISPRO 100 UNITS/ML SUBCUT SCH ×4 (07:50→20:53)
[2019-09-08 08:01] LABS: PHOSPHORUS 6.3 mg/dL (2.5-4.9)
[2019-09-08 08:02] VITALS: BP 91/68
[2019-09-08] MEDS: CALCITRIOL 0.25MCG CAPSULE PO SCH (09:08)
[2019-09-08] MEDS: SEVELAMER CARBONATE 800 MG TABLET PO SCH ×3 (09:08→18:26)
[2019-09-08] MEDS: CARVEDILOL 12.5MG TABLET PO SCH ×2 (09:09→20:52)
[2019-09-08 09:54] LABS: MEAN PLATELET VOLUME 9.5 fl (7.4-10.4); PLATELET 116 x1000/uL (130-400)
[2019-09-08 12:04] VITALS: BP 124/56
[2019-09-08] MEDS: LOSARTAN POTASSIUM 25 MG TABLET PO SCH (12:43)
[2019-09-08 16:11] VITALS: BP 120/52
[2019-09-08 20:00] VITALS: BP 131/51
[2019-09-08] MEDS: EPOETIN ALFA 4000UNITS/ML VIAL SUBCUT SCH ×2 (20:52→20:58)
[2019-09-09 00:13] VITALS: BP 132/50
[2019-09-09] MEDS: IPRATROPIUM/ALBUTEROL 0.5-3(2.5)MG/3ML NEB HHN SCH ×4 (02:45→20:35)
[2019-09-09 04:00] VITALS: BP 136/53
[2019-09-09] MEDS: DIPHENHYDRAMINE 50MG/ML VIAL IV SCH ×4 (04:00→15:55)
[2019-09-09] MEDS: BLOOD SUGAR DIAGNOSTIC STRIP TEST SCH ×4 (06:32→20:27)
[2019-09-09 07:02] LABS: PHOSPHORUS 6.5 mg/dL (2.5-4.9)
[2019-09-09 07:10] LABS: BASOPHILS % 0.3 % (0.0-2.0); EOSINOPHILS % 1.3 % (0.0-5.0); HEMATOCRIT. 26.7 % (42.0-52.0); HEMOGLOBIN. 9.1 g/dL (14.0-18.0); LYMPHOCYTES % 10.5 % (20.0-50.0); MEAN CORPUSCULAR HEMOGLOBIN 31.1 pg (28.0-32.0); MEAN CORPUSCULAR VOLUME 91.6 fL (80.0-94.0); MEAN PLATELET VOLUME 9.8 fl (7.4-10.4); MONOCYTES % 9.9 % (2.0-8.0); PLATELET 114 x1000/uL (130-400); RED BLOOD CELL COUNT 2.92 mill/uL (4.7-6.1); RED CELL DISTRIBUTION WIDTH 16.5 % (11.6-14.6)
[2019-09-09 08:23] VITALS: BP 142/61
[2019-09-09] MEDS: CARVEDILOL 12.5MG TABLET PO SCH ×2 (09:00→20:27)
[2019-09-09] MEDS: SEVELAMER CARBONATE 800 MG TABLET PO SCH ×3 (09:06→17:40)
[2019-09-09] MEDS: CALCITRIOL 0.25MCG CAPSULE PO SCH (09:06)
[2019-09-09] MEDS: INSULIN LISPRO 100 UNITS/ML SUBCUT SCH ×4 (09:08→20:34)
[2019-09-09] MEDS ORDERED: BARIUM SULFATE 176 GM SUSP.RECON ONE (09:36)
[2019-09-09 11:57] VITALS: BP 137/57
[2019-09-09] MEDS: LOSARTAN POTASSIUM 25 MG TABLET PO SCH (12:00)
[2019-09-09] MEDS: POLYETHYLENE GLYCOL 3350 (17GM) 1 DOSE PACK PO SCH (15:47)
[2019-09-09] MEDS: LACTULOSE 20G/30ML UDC PO SCH ×3 (15:47→20:27)
[2019-09-09 16:08] VITALS: BP 143/64
[2019-09-09] MEDS: HYDROCODONE/ACETAMINOPHEN 5/325MG TABLET PO PRN (16:55)
[2019-09-09 20:00] VITALS: BP 121/42
[2019-09-09] MEDS: ASCORBIC ACID 500 MG TABLET PO SCH (20:27)
[2019-09-09] MEDS: ZINC SULFATE 220 MG ( 50 ) CAPSULE PO SCH (20:27)
[2019-09-09] MEDS ORDERED: DIPHENHYDRAMINE 25MG CAPSULE PO PRN (21:45)
[2019-09-10] VITALS (7 sets, daily range): BP systolic 100–150; BP diastolic 48–93
[2019-09-10] MEDS: IPRATROPIUM/ALBUTEROL 0.5-3(2.5)MG/3ML NEB HHN SCH ×3 (01:48→20:52)
[2019-09-10] MEDS: IPRATROPIUM/ALBUTEROL 0.5-3(2.5)MG/3ML NEB HHN PRN (04:56)
[2019-09-10] MEDS: HYDROCODONE/ACETAMINOPHEN 5/325MG TABLET PO PRN ×2 (06:17→13:04)
[2019-09-10] MEDS: BLOOD SUGAR DIAGNOSTIC STRIP TEST SCH ×4 (06:38→21:28)
[2019-09-10 07:22] LABS: HEMATOCRIT. 24.5 % (42.0-52.0); HEMOGLOBIN. 8.4 g/dL (14.0-18.0); MEAN CORPUSCULAR HEMOGLOBIN 31.1 pg (28.0-32.0); MEAN CORPUSCULAR VOLUME 91.2 fL (80.0-94.0); MEAN PLATELET VOLUME 9.6 fl (7.4-10.4); PLATELET 97 x1000/uL (130-400); RED BLOOD CELL COUNT 2.68 mill/uL (4.7-6.1)
[2019-09-10 08:03] LABS: PHOSPHORUS 3.9 mg/dL (2.5-4.9)
[2019-09-10] MEDS: LACTULOSE 20G/30ML UDC PO SCH ×4 (09:00→21:59)
[2019-09-10] MEDS: POLYETHYLENE GLYCOL 3350 (17GM) 1 DOSE PACK PO SCH (09:00)
[2019-09-10] MEDS: INSULIN LISPRO 100 UNITS/ML SUBCUT SCH ×4 (09:20→21:55)
[2019-09-10] MEDS: ASCORBIC ACID 500 MG TABLET PO SCH (09:20)
[2019-09-10] MEDS: SEVELAMER CARBONATE 800 MG TABLET PO SCH ×3 (09:20→17:50)
[2019-09-10] MEDS: CALCITRIOL 0.25MCG CAPSULE PO SCH (09:30)
[2019-09-10] MEDS: CARVEDILOL 12.5MG TABLET PO SCH ×2 (09:30→21:52)
[2019-09-10] MEDS: ZINC SULFATE 220 MG ( 50 ) CAPSULE PO SCH (09:30)
[2019-09-10 12:52] LABS: NUCLEATED RED BLOOD CELLS 1 /100 WBC; PLATELET ESTIMATE DECREASED
[2019-09-10] MEDS: LOSARTAN POTASSIUM 25 MG TABLET PO SCH (13:05)
[2019-09-10] MEDS ORDERED: TRAMADOL 50MG TABLET PO PRN (15:15)
[2019-09-10] MEDS: AZITHROMYCIN 500 MG in DEXT 5% WATER 250 ML IV SCH (18:38)
[2019-09-10] MEDS: FOLIC ACID/VITAMIN B COMP W-C TABLET PO SCH (21:51)
[2019-09-11] VITALS (7 sets, daily range): BP systolic 100–114; BP diastolic 43–66
[2019-09-11] MEDS: IPRATROPIUM/ALBUTEROL 0.5-3(2.5)MG/3ML NEB HHN SCH ×4 (01:01→19:49)
[2019-09-11 05:48] LABS: BASOPHILS % 0.3 % (0.0-2.0); EOSINOPHILS % 1.5 % (0.0-5.0); HEMATOCRIT. 24.8 % (42.0-52.0); HEMOGLOBIN. 8.3 g/dL (14.0-18.0); LYMPHOCYTES % 7.8 % (20.0-50.0); MEAN CORPUSCULAR HEMOGLOBIN 31.2 pg (28.0-32.0); MEAN CORPUSCULAR VOLUME 93.4 fL (80.0-94.0); MEAN PLATELET VOLUME 9.4 fl (7.4-10.4); MONOCYTES % 8.9 % (2.0-8.0); NEUTROPHILS % 81.5 % (40.0-76.0); PLATELET 93 x1000/uL (130-400); RED BLOOD CELL COUNT 2.66 mill/uL (4.7-6.1); RED CELL DISTRIBUTION WIDTH 17.4 % (11.6-14.6)
[2019-09-11 06:27] LABS: CHLORIDE 104 mEq/L (98-107)
[2019-09-11] MEDS: INSULIN LISPRO 100 UNITS/ML SUBCUT SCH ×4 (06:36→21:50)
[2019-09-11 06:45] LABS: PHOSPHORUS 3.9 mg/dL (2.5-4.9)
[2019-09-11] MEDS: BLOOD SUGAR DIAGNOSTIC STRIP TEST SCH ×4 (07:14→21:52)
[2019-09-11] MEDS: CARVEDILOL 12.5MG TABLET PO SCH ×2 (09:00→21:00)
[2019-09-11] MEDS: SEVELAMER CARBONATE 800 MG TABLET PO SCH ×3 (09:04→17:42)
[2019-09-11] MEDS: ZINC SULFATE 220 MG ( 50 ) CAPSULE PO SCH (09:04)
[2019-09-11] MEDS: CALCITRIOL 0.25MCG CAPSULE PO SCH (09:04)
[2019-09-11] MEDS: POLYETHYLENE GLYCOL 3350 (17GM) 1 DOSE PACK PO SCH (09:04)
[2019-09-11] MEDS: FOLIC ACID/VITAMIN B COMP W-C TABLET PO SCH (09:04)
[2019-09-11] MEDS: ASCORBIC ACID 500 MG TABLET PO SCH (09:04)
[2019-09-11] MEDS: LOSARTAN POTASSIUM 25 MG TABLET PO SCH (12:58)
[2019-09-11] MEDS ORDERED: HYDROCODONE/ACETAMINOPHEN 10/325MG TABLET PO PRN (16:30)
[2019-09-11] MEDS: AZITHROMYCIN 500 MG in DEXT 5% WATER 250 ML IV SCH (17:43)
[2019-09-12] VITALS: BP 115/48
[2019-09-12] MEDS: IPRATROPIUM/ALBUTEROL 0.5-3(2.5)MG/3ML NEB HHN SCH ×2 (01:41→08:00)
[2019-09-12 04:00] VITALS: BP 115/45
[2019-09-12 06:14] LABS: EOSINOPHILS % 1.3 % (0.0-5.0); HEMATOCRIT. 24.9 % (42.0-52.0); HEMOGLOBIN. 8.4 g/dL (14.0-18.0); LYMPHOCYTES % 8.9 % (20.0-50.0); MEAN CORPUSCULAR HEMOGLOBIN 31.4 pg (28.0-32.0); MEAN CORPUSCULAR VOLUME 93.6 fL (80.0-94.0); MEAN PLATELET VOLUME 9.6 fl (7.4-10.4); MONOCYTES % 10.9 % (2.0-8.0); NEUTROPHILS % 77.9 % (40.0-76.0); PLATELET 82 x1000/uL (130-400); RED BLOOD CELL COUNT 2.66 mill/uL (4.7-6.1); RED CELL DISTRIBUTION WIDTH 17.8 % (11.6-14.6)
[2019-09-12 06:17] LABS: PHOSPHORUS 4.6 mg/dL (2.5-4.9)
[2019-09-12] MEDS: BLOOD SUGAR DIAGNOSTIC STRIP TEST SCH ×2 (06:22→12:20)
[2019-09-12 08:00] VITALS: BP 130/60
[2019-09-12 08:47] LABS: BG BASE EXCESS -4.1 mmol/L (-2.0-2.0); BG CARBOXYHEMOGLOBIN 0.9 % (0.5-1.5); BG FRACTION INSPIRED OXYGEN 21; BG HCO3 ACT 19.8 mmol/L (22.0-26.0); BG METHEMOGLOBIN 0.1 % (0.0-1.5); BG OXYGEN SATURATION 93.9 % (92.0-98.5); BG PCO2 31.1 mmHg (35.0-45.0); BG PH 7.421 (7.350-7.450); BG PO2 72.5 mmHg (75.0-100.0); BG SAMPLE SITE RIGHT BRACHIAL; BG TOTAL HEMOGLOBIN 8.2 g/dL (12.0-18.0); BG VENT MODE ROOM AIR
[2019-09-12] MEDS: FOLIC ACID/VITAMIN B COMP W-C TABLET PO SCH (09:19)
[2019-09-12] MEDS: ASCORBIC ACID 500 MG TABLET PO SCH (09:19)
[2019-09-12] MEDS: CALCITRIOL 0.25MCG CAPSULE PO SCH (09:19)
[2019-09-12] MEDS: CARVEDILOL 12.5MG TABLET PO SCH (09:19)
[2019-09-12] MEDS: SEVELAMER CARBONATE 800 MG TABLET PO SCH ×2 (09:19→13:33)
[2019-09-12] MEDS: ZINC SULFATE 220 MG ( 50 ) CAPSULE PO SCH (09:19)
[2019-09-12] MEDS: POLYETHYLENE GLYCOL 3350 (17GM) 1 DOSE PACK PO SCH (09:20)
[2019-09-12] MEDS: INSULIN LISPRO 100 UNITS/ML SUBCUT SCH ×2 (09:21→13:38)
[2019-09-12 12:00] VITALS: BP 100/41
[2019-09-12] MEDS: LOSARTAN POTASSIUM 25 MG TABLET PO SCH (12:00)
[2019-09-12 15:23] VITALS: BP 100/41
[2019-09-12] MEDS ORDERED: EPOETIN ALFA 10000UNITS/ML VIAL SUBCUT SCH (21:00)
== END 2019-09-12 16:50 | DRG 471 ==
LOC: 6EST 12:19 → MICUSO 08-29 14:42 → 6WST 09-05 11:53
PROVIDERS: ADMIT Internal Medicine; ATTEND Internal Medicine
PROC: 0RG2071 Fusion of 2 or more Cervical Vertebral Joints with Autologous Tissue Substitute, Posterior Approach, Posterior Column, Open Approach (ICD-10-PCS; principal; 2019-08-29)
PROC: 5A1945Z Respiratory Ventilation, 24-96 Consecutive Hours (ICD-10-PCS; 2019-08-29)
PROC: 01N10ZZ Release Cervical Nerve, Open Approach (ICD-10-PCS; 2019-08-29)
PROC: 00NW0ZZ Release Cervical Spinal Cord, Open Approach (ICD-10-PCS; 2019-08-29)
PROC: 0RB30ZZ Excision of Cervical Vertebral Disc, Open Approach (ICD-10-PCS; 2019-08-29)
PROC: 0BH17EZ Insertion of Endotracheal Airway into Trachea, Via Natural or Artificial Opening (ICD-10-PCS; 2019-08-29)
PROC: 02HV33Z Insertion of Infusion Device into Superior Vena Cava, Percutaneous Approach (ICD-10-PCS; 2019-08-29)
PROC: B548ZZA Ultrasonography of Superior Vena Cava, Guidance (ICD-10-PCS; 2019-08-29)
PROC: B5181ZA Fluoroscopy of Superior Vena Cava using Low Osmolar Contrast, Guidance (ICD-10-PCS; 2019-08-29)
PROC: 5A1D70Z Performance of Urinary Filtration, Intermittent, Less than 6 Hours Per Day (ICD-10-PCS; 2019-08-30)
PROC: 5A1D70Z Performance of Urinary Filtration, Intermittent, Less than 6 Hours Per Day (ICD-10-PCS; 2019-09-01)
PROC: 5A1D70Z Performance of Urinary Filtration, Intermittent, Less than 6 Hours Per Day (ICD-10-PCS; 2019-09-03)
PROC: 5A1D70Z Performance of Urinary Filtration, Intermittent, Less than 6 Hours Per Day (ICD-10-PCS; 2019-09-05)
PROC: 5A1D70Z Performance of Urinary Filtration, Intermittent, Less than 6 Hours Per Day (ICD-10-PCS; 2019-09-07)
PROC: 5A1D70Z Performance of Urinary Filtration, Intermittent, Less than 6 Hours Per Day (ICD-10-PCS; 2019-09-09)
PROC: 5A1D70Z Performance of Urinary Filtration, Intermittent, Less than 6 Hours Per Day (ICD-10-PCS; 2019-09-12)
DX: M48.02 Spinal stenosis, cervical region (principal); G82.50 Quadriplegia, unspecified; N18.6 End stage renal disease; J18.9 Pneumonia, unspecified organism; J96.01 Acute respiratory failure with hypoxia; I50.43 Acute on chronic combined systolic (congestive) and diastolic (congestive) heart failure; I42.9 Cardiomyopathy, unspecified; I47.1 Supraventricular tachycardia; D68.59 Other primary thrombophilia; E11.52 Type 2 diabetes mellitus with diabetic peripheral angiopathy with gangrene; E46 Unspecified protein-calorie malnutrition; G93.40 Encephalopathy, unspecified; I13.2 Hypertensive heart and chronic kidney disease with heart failure and with stage 5 chronic kidney disease, or end stage renal disease; M47.12 Other spondylosis with myelopathy, cervical region; J91.8 Pleural effusion in other conditions classified elsewhere; K21.9 Gastro-esophageal reflux disease without esophagitis; N40.0 Benign prostatic hyperplasia without lower urinary tract symptoms; D69.6 Thrombocytopenia, unspecified; D64.9 Anemia, unspecified; I35.0 Nonrheumatic aortic (valve) stenosis; E11.621 Type 2 diabetes mellitus with foot ulcer; R26.89 Other abnormalities of gait and mobility; E78.00 Pure hypercholesterolemia, unspecified; E78.5 Hyperlipidemia, unspecified; E78.1 Pure hyperglyceridemia; E11.22 Type 2 diabetes mellitus with diabetic chronic kidney disease; M48.061 Spinal stenosis, lumbar region without neurogenic claudication; E83.39 Other disorders of phosphorus metabolism; K59.00 Constipation, unspecified; Z99.2 Dependence on renal dialysis; Z79.01 Long term (current) use of anticoagulants; Z79.02 Long term (current) use of antithrombotics/antiplatelets; Z79.83 Long term (current) use of bisphosphonates; Z79.1 Long term (current) use of non-steroidal anti-inflammatories (NSAID); Z79.899 Other long term (current) drug therapy; Z86.718 Personal history of other venous thrombosis and embolism; Z98.62 Peripheral vascular angioplasty status; Z82.49 Family history of ischemic heart disease and other diseases of the circulatory system; Z68.24 Body mass index [BMI] 24.0-24.9, adult
CPT/HCPCS: 31500; 36415; 36573; 36600; 71045; 72040; 72141; 74230; 76000; 76937; 80048; 80053; 80061; 82375; 82805; 82962; 83036; 83735; 84100; 84134; 84478; 85025; 85651; 86850; 86900; 86920; 88304; 88311; 92610; 92611; 94002; 94003; 94640; 95864; 95925; 95926; 95928; 95929; 95940; 97110; 97162; 97166; 97530; 97535; C1713; C1725; J0360; J0456; J0690; J0885; J1170; J1200; J1815; J2250; J2270; J2310; J2405; J2543; J2704; J2710; J2920; J3010; J3490; J7042; J7050; J7060; J7121; J7512; J7608; L0172

== ENCOUNTER 2019-10-24 05:58 | Inpatient (IN) | payer MEDICARE, OTHER ==
[~2019-10-24] VITALS: Ht 177.8 cm; Wt 72.6 kg
[~2019-10-24 05:58] MED LIST changes: +ASCO500T20 PO; +CALC0.253 PO; +COR6 PO; -DOCU-150 MT; -LINA5TAB MT; -LORA10TA7 PO; -LOSA100T32 PO; -OMEP20CA14 MT; -SEVE800T8 MT; -TAMS-11 MT; -WARF-53 MT; +WARF1TAB85 MT; +ZINC220C2 PO
[2019-10-24] MEDS ORDERED: LEVOFLOXACIN 750MG PREMIX 150 ML IV ONE (08:45)
[2019-10-24 09:00] LABS: BASOPHILS % 1.3 % (0.0-2.0); EOSINOPHILS % 0.1 % (0.0-5.0); HEMATOCRIT. 35.2 % (42.0-52.0); HEMOGLOBIN. 11.3 g/dL (14.0-18.0); LYMPHOCYTES % 21.8 % (20.0-50.0); MEAN CORPUSCULAR HEMOGLOBIN 29.5 pg (28.0-32.0); MEAN CORPUSCULAR VOLUME 91.9 fL (80.0-94.0); MEAN PLATELET VOLUME 8.7 fl (7.4-10.4); MONOCYTES % 11.8 % (2.0-8.0); PLATELET 60 x1000/uL (130-400); RED BLOOD CELL COUNT 3.82 mill/uL (4.7-6.1); RED CELL DISTRIBUTION WIDTH 19.1 % (11.6-14.6)
[2019-10-24 09:08] LABS: CHLORIDE 99 mEq/L (98-107)
[2019-10-24 09:16] LABS: BG BASE EXCESS -2.7 mmol/L (-2.0-2.0); BG CARBOXYHEMOGLOBIN 0.3 % (0.5-1.5); BG DEOXYHEMOGLOBIN 1.4 % (0.0-5.0); BG FRACTION INSPIRED OXYGEN 100; BG HCO3 ACT 21.4 mmol/L (22.0-26.0); BG METHEMOGLOBIN 0.3 % (0.0-1.5); BG OXYGEN SATURATION 98.6 % (92.0-98.5); BG PCO2 33.9 mmHg (35.0-45.0); BG PH 7.418 (7.350-7.450); BG PO2 144.6 mmHg (75.0-100.0); BG SAMPLE SITE RIGHT RADIAL; BG TIDAL VOLUME(mL) 500 mL; BG VENT MODE VENT - A/C; BG VENT RATE 14 set
[2019-10-24] MEDS ORDERED: ENOXAPARIN 80MG/0.8ML SYR SUBCUT ONE (10:15)
[2019-10-24] MEDS ORDERED: ONDANSETRON HCL 4MG/2ML INJ IV PRN (17:45)
[2019-10-24] MEDS ORDERED: CLONIDINE 0.1MG TABLET PO PRN (17:45)
[2019-10-24] MEDS ORDERED: PANTOPRAZOLE SODIUM 40 MG/VIAL IV SCH ×2 (17:45→18:45)
[2019-10-24] MEDS ORDERED: ACETAMINOPHEN 325MG TABLET PO PRN (17:45)
[2019-10-24 21:47] LABS: INR 1.1
[2019-10-24] MEDS: ATORVASTATIN CALCIUM 20MG TABLET PO SCH (21:51)
[2019-10-24] MEDS ORDERED: DOXYCYCLINE 100 MG in DEXT 5% WATER 100 ML IV NR (23:30)
[2019-10-24] MEDS ORDERED: CEFEPIME 1,000 MG in DEXTROSE 5% WATER 50 ML IV NR (23:30)
[2019-10-25 06:15] LABS: BASOPHILS % 1.1 % (0.0-2.0); EOSINOPHILS % 0.1 % (0.0-5.0); HEMATOCRIT. 34.8 % (42.0-52.0); HEMOGLOBIN. 11.3 g/dL (14.0-18.0); LYMPHOCYTES % 24.4 % (20.0-50.0); MEAN CORPUSCULAR HEMOGLOBIN 29.8 pg (28.0-32.0); MEAN CORPUSCULAR VOLUME 91.6 fL (80.0-94.0); MEAN PLATELET VOLUME 8.6 fl (7.4-10.4); MONOCYTES % 13.7 % (2.0-8.0); NEUTROPHILS % 60.7 % (40.0-76.0); PLATELET 61 x1000/uL (130-400)
[2019-10-25 08:07] LABS: BG BASE EXCESS -1.1 mmol/L (-2.0-2.0); BG CARBOXYHEMOGLOBIN 0.2 % (0.5-1.5); BG DEOXYHEMOGLOBIN 2.4 % (0.0-5.0); BG FRACTION INSPIRED OXYGEN 32; BG HCO3 ACT 24.4 mmol/L (22.0-26.0); BG METHEMOGLOBIN 0.3 % (0.0-1.5); BG OXYGEN SATURATION 97.6 % (92.0-98.5); BG OXYHEMOGLOBIN 97.1 % (94.0-97.0); BG PCO2 43.7 mmHg (35.0-45.0); BG PH 7.364 (7.350-7.450); BG PO2 105.9 mmHg (75.0-100.0); BG SAMPLE SITE RIGHT BRACHIAL; BG TOTAL HEMOGLOBIN 11.5 g/dL (12.0-18.0); BG VENT MODE NASAL CANNULA
[2019-10-25] MEDS ORDERED: DOXYCYCLINE 100 MG in DEXT 5% WATER 100 ML IV SCH (11:15)
[2019-10-25] MEDS ORDERED: ONDANSETRON HCL 4MG TABLET PO PRN (16:00)
[2019-10-25] MEDS ORDERED: ENOXAPARIN 60MG/0.6ML SYR SUBCUT NR (19:30)
[2019-10-25] MEDS ORDERED: CEFEPIME 1,000 MG in DEXTROSE 5% WATER 50 ML IV SCH (21:00)
[2019-10-25 22:00] VITALS: BP 138/71
[2019-10-25] MEDS: ATORVASTATIN CALCIUM 20MG TABLET PO SCH (23:47)
[2019-10-25] MEDS: CARVEDILOL 3.125 MG TABLET PO SCH (23:48)
[2019-10-25] MEDS: DOXYCYCLINE 100 MG in DEXT 5% WATER 100 ML IV SCH (23:48)
[2019-10-26] VITALS: BP 134/62
[2019-10-26 04:00] VITALS: BP 103/50
[2019-10-26 06:12] LABS: BASOPHILS % 0.8 % (0.0-2.0); HEMATOCRIT. 31.4 % (42.0-52.0); HEMOGLOBIN. 10.1 g/dL (14.0-18.0); LYMPHOCYTES % 15.2 % (20.0-50.0); MEAN CORPUSCULAR HEMOGLOBIN 29.4 pg (28.0-32.0); MEAN CORPUSCULAR VOLUME 91.6 fL (80.0-94.0); MEAN PLATELET VOLUME 8.6 fl (7.4-10.4); MONOCYTES % 9.5 % (2.0-8.0); NEUTROPHILS % 74.5 % (40.0-76.0); PLATELET 53 x1000/uL (130-400); RED BLOOD CELL COUNT 3.43 mill/uL (4.7-6.1); RED CELL DISTRIBUTION WIDTH 18.6 % (11.6-14.6)
[2019-10-26] MEDS: CEFEPIME 500 MG in DEXTROSE 5% WATER 50 ML IV SCH (08:59)
[2019-10-26] MEDS: CARVEDILOL 3.125 MG TABLET PO SCH ×2 (09:00→21:41)
[2019-10-26] MEDS: DOXYCYCLINE 100 MG in DEXT 5% WATER 100 ML IV SCH ×3 (11:02→21:40)
[2019-10-26 13:51] LABS: HEMATOCRIT 31.7 % (42.0-52.0); HEMOGLOBIN 10.3 g/dL (14.0-18.0); MEAN CORPUSCULAR HEMOGLOBIN 29.1 pg (28.0-32.0); MEAN CORPUSCULAR VOLUME 89.6 fL (80.0-94.0); PLATELET 57 x1000/uL (130-400); RED BLOOD CELL COUNT 3.54 mill/uL (4.7-6.1); RED CELL DISTRIBUTION WIDTH 18.1 % (11.6-14.6)
[2019-10-26 14:02] LABS: PHOSPHORUS 5.1 mg/dL (2.5-4.9)
[2019-10-26 17:18] LABS: COVID-19 PCR RNA DETECTED
[2019-10-26 17:20] LABS: COVID-19 PCR RNA DETECTED
[2019-10-26 20:00] VITALS: BP 127/61
[2019-10-26] MEDS: ATORVASTATIN CALCIUM 20MG TABLET PO SCH (21:40)
[2019-10-26] MEDS ORDERED: DEXTROSE 50% WATER 50ML SYRINGE IV PRN (23:30)
[2019-10-27] VITALS: BP 94/51
[2019-10-27 04:00] VITALS: BP 129/48
[2019-10-27] MEDS: BLOOD SUGAR DIAGNOSTIC STRIP TEST SCH ×4 (05:53→21:38)
[2019-10-27 08:00] VITALS: BP 115/55
[2019-10-27] MEDS: DOXYCYCLINE 100 MG in DEXT 5% WATER 100 ML IV SCH (08:22)
[2019-10-27] MEDS: THIAMINE HCL 100MG TABLET PO SCH ×2 (08:23→18:00)
[2019-10-27] MEDS: ZINC SULFATE 220 MG ( 50 ) CAPSULE PO SCH (08:23)
[2019-10-27] MEDS: ASCORBIC ACID 500 MG TABLET PO SCH ×2 (08:23→18:00)
[2019-10-27] MEDS: CARVEDILOL 3.125 MG TABLET PO SCH ×2 (09:32→20:56)
[2019-10-27] MEDS: CEFEPIME 500 MG in DEXTROSE 5% WATER 50 ML IV SCH (09:32)
[2019-10-27 12:00] VITALS: BP 114/54
[2019-10-27 16:00] VITALS: BP 101/53
[2019-10-27 20:06] VITALS: BP 118/53
[2019-10-27] MEDS: ATORVASTATIN CALCIUM 20MG TABLET PO SCH (20:52)
[2019-10-27] MEDS: DOXYCYCLINE HYCLATE 100MG CAPSULE PO SCH (20:52)
[2019-10-27] MEDS: ALBUTEROL 6.7GM HFA INHALER ORI PRN (20:58)
[2019-10-27 22:02] LABS: BASOPHILS % 0.9 % (0.0-2.0); EOSINOPHILS % 0.1 % (0.0-5.0); HEMATOCRIT. 28.1 % (42.0-52.0); HEMOGLOBIN. 9.2 g/dL (14.0-18.0); LYMPHOCYTES % 17.2 % (20.0-50.0); MEAN CORPUSCULAR HEMOGLOBIN 29.5 pg (28.0-32.0); MEAN CORPUSCULAR VOLUME 90.5 fL (80.0-94.0); MEAN PLATELET VOLUME 8.8 fl (7.4-10.4); MONOCYTES % 6.1 % (2.0-8.0); NEUTROPHILS % 75.7 % (40.0-76.0); PLATELET 54 x1000/uL (130-400); RED CELL DISTRIBUTION WIDTH 18.5 % (11.6-14.6)
[2019-10-27 22:08] LABS: CHLORIDE 101 mEq/L (98-107)
[2019-10-28 00:38] VITALS: BP 121/56
[2019-10-28 04:00] VITALS: BP 109/45
[2019-10-28 06:12] LABS: BASOPHILS % 0.8 % (0.0-2.0); EOSINOPHILS % 0.2 % (0.0-5.0); HEMATOCRIT. 28.9 % (42.0-52.0); HEMOGLOBIN. 9.4 g/dL (14.0-18.0); LYMPHOCYTES % 16.4 % (20.0-50.0); MEAN CORPUSCULAR HEMOGLOBIN 29.5 pg (28.0-32.0); MEAN CORPUSCULAR VOLUME 90.5 fL (80.0-94.0); MEAN PLATELET VOLUME 8.8 fl (7.4-10.4); MONOCYTES % 4.9 % (2.0-8.0); NEUTROPHILS % 77.7 % (40.0-76.0); PLATELET 54 x1000/uL (130-400); RED BLOOD CELL COUNT 3.19 mill/uL (4.7-6.1); RED CELL DISTRIBUTION WIDTH 18.7 % (11.6-14.6)
[2019-10-28] MEDS: BLOOD SUGAR DIAGNOSTIC STRIP TEST SCH ×4 (06:53→22:01)
[2019-10-28] MEDS: CEFEPIME 500 MG in DEXTROSE 5% WATER 50 ML IV SCH (10:02)
[2019-10-28] MEDS: ZINC SULFATE 220 MG ( 50 ) CAPSULE PO SCH (10:03)
[2019-10-28] MEDS: THIAMINE HCL 100MG TABLET PO SCH ×2 (10:03→17:00)
[2019-10-28] MEDS: DOXYCYCLINE HYCLATE 100MG CAPSULE PO SCH ×2 (10:03→21:55)
[2019-10-28] MEDS: ASCORBIC ACID 500 MG TABLET PO SCH ×2 (10:03→17:00)
[2019-10-28] MEDS: CARVEDILOL 3.125 MG TABLET PO SCH ×2 (11:12→21:56)
[2019-10-28] MEDS: ALBUTEROL 6.7GM HFA INHALER ORI PRN (11:13)
[2019-10-28 12:00] VITALS: BP 113/46
[2019-10-28 16:00] VITALS: BP 113/46
[2019-10-28 20:00] VITALS: BP 117/50
[2019-10-28] MEDS: ATORVASTATIN CALCIUM 20MG TABLET PO SCH (21:55)
[2019-10-29] VITALS: BP 119/66
[2019-10-29 04:00] VITALS: BP 120/68
[2019-10-29] MEDS: BLOOD SUGAR DIAGNOSTIC STRIP TEST SCH ×4 (07:03→21:27)
[2019-10-29 07:51] LABS: HEMATOCRIT. 28.1 % (42.0-52.0); HEMOGLOBIN. 9.2 g/dL (14.0-18.0); MEAN CORPUSCULAR HEMOGLOBIN 29.8 pg (28.0-32.0); MEAN CORPUSCULAR VOLUME 90.6 fL (80.0-94.0); RED CELL DISTRIBUTION WIDTH 18.6 % (11.6-14.6)
[2019-10-29 08:00] VITALS: BP 115/36
[2019-10-29 08:05] LABS: PHOSPHORUS 4.5 mg/dL (2.5-4.9)
[2019-10-29] MEDS: DOXYCYCLINE HYCLATE 100MG CAPSULE PO SCH ×2 (09:56→21:27)
[2019-10-29] MEDS: ASCORBIC ACID 500 MG TABLET PO SCH ×2 (09:56→17:24)
[2019-10-29] MEDS: ZINC SULFATE 220 MG ( 50 ) CAPSULE PO SCH (09:57)
[2019-10-29] MEDS: THIAMINE HCL 100MG TABLET PO SCH ×2 (09:57→17:24)
[2019-10-29] MEDS: CARVEDILOL 3.125 MG TABLET PO SCH ×2 (09:57→21:53)
[2019-10-29 10:31] LABS: PLATELET ESTIMATE DECREASED
[2019-10-29 10:32] LABS: MEAN PLATELET VOLUME 9.1 fl (7.4-10.4); PLATELET 74 x1000/uL (130-400)
[2019-10-29 12:08] VITALS: BP 128/54
[2019-10-29] MEDS: CEFEPIME 500 MG in DEXTROSE 5% WATER 50 ML IV SCH (12:20)
[2019-10-29 16:00] VITALS: BP 121/49
[2019-10-29] MEDS: DEXTROSE 5% WATER 1,000 ML IV SCH (17:24)
[2019-10-29 20:00] VITALS: BP 125/56
[2019-10-29] MEDS: ATORVASTATIN CALCIUM 20MG TABLET PO SCH (21:27)
[2019-10-30] VITALS: BP 110/77
[2019-10-30 04:00] VITALS: BP 117/68
[2019-10-30] MEDS: BLOOD SUGAR DIAGNOSTIC STRIP TEST SCH ×4 (06:27→21:00)
[2019-10-30 08:00] VITALS: BP 117/81
[2019-10-30] MEDS ORDERED: ENOXAPARIN 60MG/0.6ML SYR SUBCUT SCH (09:00)
[2019-10-30] MEDS: CARVEDILOL 3.125 MG TABLET PO SCH ×2 (09:40→21:00)
[2019-10-30] MEDS: DOXYCYCLINE HYCLATE 100MG CAPSULE PO SCH ×2 (09:40→21:00)
[2019-10-30] MEDS: ASCORBIC ACID 500 MG TABLET PO SCH ×2 (09:40→16:50)
[2019-10-30] MEDS: CEFEPIME 500 MG in DEXTROSE 5% WATER 50 ML IV SCH (09:40)
[2019-10-30] MEDS: THIAMINE HCL 100MG TABLET PO SCH ×2 (09:40→16:51)
[2019-10-30 16:00] VITALS: BP 116/51
[2019-10-30] MEDS: ZINC SULFATE 220 MG ( 50 ) CAPSULE PO SCH (16:51)
[2019-10-30] MEDS: DEXTROSE 5% WATER 1,000 ML IV SCH ×2 (16:55→18:10)
[2019-10-30 20:00] VITALS: BP 114/58
[2019-10-30] MEDS: ATORVASTATIN CALCIUM 20MG TABLET PO SCH (21:00)
[2019-10-31] VITALS (7 sets, daily range): BP systolic 11–123; BP diastolic 46–67
[2019-10-31] MEDS: BLOOD SUGAR DIAGNOSTIC STRIP TEST SCH ×4 (06:33→20:36)
[2019-10-31] MEDS: DEXTROSE 5% WATER 1,000 ML IV SCH ×2 (07:30→20:36)
[2019-10-31 07:48] LABS: BASOPHILS % 0.7 % (0.0-2.0); EOSINOPHILS % 0.5 % (0.0-5.0); HEMATOCRIT. 29.4 % (42.0-52.0); HEMOGLOBIN. 9.4 g/dL (14.0-18.0); LYMPHOCYTES % 10.1 % (20.0-50.0); MEAN CORPUSCULAR HEMOGLOBIN 28.9 pg (28.0-32.0); MEAN CORPUSCULAR VOLUME 90.1 fL (80.0-94.0); MEAN PLATELET VOLUME 8.4 fl (7.4-10.4); MONOCYTES % 5.2 % (2.0-8.0); NEUTROPHILS % 83.5 % (40.0-76.0); PLATELET 52 x1000/uL (130-400); RED BLOOD CELL COUNT 3.26 mill/uL (4.7-6.1); RED CELL DISTRIBUTION WIDTH 18.6 % (11.6-14.6)
[2019-10-31 08:00] LABS: PHOSPHORUS 5.9 mg/dL (2.5-4.9)
[2019-10-31] MEDS: CEFEPIME 500 MG in DEXTROSE 5% WATER 50 ML IV SCH (08:00)
[2019-10-31] MEDS ORDERED: MORPHINE SULFATE 250 MG in DEXT 5% WATER 240 ML IV PRN (10:00)
[2019-10-31] MEDS: CARVEDILOL 3.125 MG TABLET PO SCH ×2 (10:28→21:00)
[2019-10-31] MEDS: ASCORBIC ACID 500 MG TABLET PO SCH ×2 (10:28→17:00)
[2019-10-31] MEDS: THIAMINE HCL 100MG TABLET PO SCH ×2 (10:28→17:00)
[2019-10-31] MEDS: ZINC SULFATE 220 MG ( 50 ) CAPSULE PO SCH (10:28)
[2019-10-31] MEDS ORDERED: HALOPERIDOL LACTATE 5MG/ML VIAL IM PRN (15:15)
[2019-10-31] MEDS ORDERED: MORPHINE SULFATE 10MG/5ML ORAL SOLN UDC PO PRN (16:00)
[2019-10-31] MEDS: ATORVASTATIN CALCIUM 20MG TABLET PO SCH (21:22)
[2019-11-01] VITALS: BP 116/46
[2019-11-01 04:00] VITALS: BP 114/54
[2019-11-01] MEDS: BLOOD SUGAR DIAGNOSTIC STRIP TEST SCH ×4 (07:01→21:33)
[2019-11-01 08:00] VITALS: BP 107/52
[2019-11-01] MEDS: CARVEDILOL 3.125 MG TABLET PO SCH ×2 (09:00→21:14)
[2019-11-01] MEDS: THIAMINE HCL 100MG TABLET PO SCH ×3 (09:35→16:34)
[2019-11-01] MEDS: ASCORBIC ACID 500 MG TABLET PO SCH ×3 (09:35→16:34)
[2019-11-01] MEDS: ZINC SULFATE 220 MG ( 50 ) CAPSULE PO SCH (09:36)
[2019-11-01] MEDS: DEXTROSE 5% WATER 1,000 ML IV SCH (10:58)
[2019-11-01 12:00] VITALS: BP 146/50
[2019-11-01 16:00] VITALS: BP 135/59
[2019-11-01 20:00] VITALS: BP 132/48
[2019-11-01] MEDS: ATORVASTATIN CALCIUM 20MG TABLET PO SCH (21:14)
[2019-11-02] VITALS: BP 139/51
[2019-11-02] MEDS: DEXTROSE 5% WATER 1,000 ML IV SCH ×2 (01:43→14:41)
[2019-11-02 04:00] VITALS: BP 131/49
[2019-11-02 06:56] LABS: BASOPHILS % 1.5 % (0.0-2.0); EOSINOPHILS % 1.8 % (0.0-5.0); HEMATOCRIT. 25.9 % (42.0-52.0); HEMOGLOBIN. 8.5 g/dL (14.0-18.0); LYMPHOCYTES % 14.2 % (20.0-50.0); MEAN CORPUSCULAR HEMOGLOBIN 29.2 pg (28.0-32.0); MEAN CORPUSCULAR VOLUME 89.6 fL (80.0-94.0); MONOCYTES % 6.6 % (2.0-8.0); NEUTROPHILS % 75.9 % (40.0-76.0); RED CELL DISTRIBUTION WIDTH 18.3 % (11.6-14.6)
[2019-11-02 08:06] VITALS: BP 114/16
[2019-11-02] MEDS: BLOOD SUGAR DIAGNOSTIC STRIP TEST SCH ×3 (08:32→16:49)
[2019-11-02] MEDS: CARVEDILOL 3.125 MG TABLET PO SCH ×2 (09:00→22:10)
[2019-11-02 12:06] VITALS: BP 110/56
[2019-11-02 16:08] VITALS: BP 158/120
[2019-11-02 20:00] VITALS: BP 120/81
[2019-11-03] VITALS: BP 69/43
[2019-11-03] MEDS: DEXTROSE 5% WATER 1,000 ML IV SCH (03:19)
[2019-11-03 04:00] VITALS: BP 97/49
[2019-11-03 08:15] VITALS: BP 104/72
[2019-11-03] MEDS: CARVEDILOL 3.125 MG TABLET PO SCH (09:00)
[2019-11-03] MEDS ORDERED: LORAZEPAM 2MG/ML CPJ IV PRN (11:30)
[2019-11-03] MEDS ORDERED: MORPHINE SULFATE 2 MG/ML CPJ (NOT FOR IM USE) IV PRN (11:30)
[2019-11-03] MEDS: SODIUM CHLORIDE 45ML SPRAY NS SCH ×3 (12:29→18:14)
[2019-11-03 14:00] VITALS: BP 107/49
[2019-11-03 16:10] VITALS: BP 119/64
[2019-11-03 20:00] VITALS: BP 134/89
[2019-11-04] VITALS: BP 128/89
[2019-11-04] MEDS: CARVEDILOL 3.125 MG TABLET PO SCH ×3 (02:14→21:51)
[2019-11-04] MEDS: SODIUM CHLORIDE 45ML SPRAY NS SCH ×4 (02:15→23:40)
[2019-11-04 04:00] VITALS: BP 118/60
[2019-11-04] MEDS: DEXTROSE 5% WATER 1,000 ML IV SCH (06:33)
[2019-11-04 08:00] VITALS: BP 142/58
[2019-11-04 12:00] VITALS: BP 110/58
[2019-11-04 16:00] VITALS: BP 105/50
[2019-11-04 20:00] VITALS: BP 110/44
[2019-11-05] VITALS: BP 114/57
[2019-11-05 04:00] VITALS: BP 108/51
[2019-11-05] MEDS: SODIUM CHLORIDE 45ML SPRAY NS SCH ×3 (05:51→17:06)
[2019-11-05 08:00] VITALS: BP 101/33
[2019-11-05] MEDS: CARVEDILOL 3.125 MG TABLET PO SCH ×2 (08:53→21:28)
[2019-11-05 12:00] VITALS: BP 111/35
[2019-11-05 16:00] VITALS: BP 126/51
[2019-11-05 20:00] VITALS: BP 139/56
[2019-11-06] VITALS: BP 107/44
[2019-11-06] MEDS: SODIUM CHLORIDE 45ML SPRAY NS SCH ×4 (00:54→21:30)
[2019-11-06 04:00] VITALS: BP 113/49
[2019-11-06 08:00] VITALS: BP 100/60
[2019-11-06] MEDS: CARVEDILOL 3.125 MG TABLET PO SCH ×2 (10:36→21:00)
[2019-11-06 12:00] VITALS: BP 125/56
[2019-11-06 16:00] VITALS: BP 114/50
[2019-11-06 20:00] VITALS: BP 114/47
[2019-11-07] VITALS: BP 116/49
[2019-11-07] MEDS: SODIUM CHLORIDE 45ML SPRAY NS SCH ×4 (00:01→17:14)
[2019-11-07 04:00] VITALS: BP 103/23
[2019-11-07 08:00] VITALS: BP 92/55
[2019-11-07] MEDS: CARVEDILOL 3.125 MG TABLET PO SCH ×2 (08:31→21:00)
[2019-11-07 12:00] VITALS: BP_SYST 105; BP_SYST 117; BP_DIAS 30; BP_DIAS 41
[2019-11-07 20:00] VITALS: BP 106/45
[2019-11-08] VITALS: BP 103/44
[2019-11-08 04:00] VITALS: BP 117/52
[2019-11-08] MEDS: SODIUM CHLORIDE 45ML SPRAY NS SCH ×3 (06:33→18:00)
[2019-11-08 08:00] VITALS: BP 123/35
[2019-11-08] MEDS: CARVEDILOL 3.125 MG TABLET PO SCH ×2 (10:30→21:18)
[2019-11-08 12:00] VITALS: BP 123/50
[2019-11-08 16:00] VITALS: BP 123/47
[2019-11-08 20:00] VITALS: BP 136/56
[2019-11-09] VITALS: BP 116/45
[2019-11-09] MEDS: SODIUM CHLORIDE 45ML SPRAY NS SCH ×5 (00:22→23:50)
[2019-11-09 04:00] VITALS: BP 128/59
[2019-11-09 08:00] VITALS: BP 132/58
[2019-11-09] MEDS: CARVEDILOL 3.125 MG TABLET PO SCH ×2 (08:58→21:00)
[2019-11-09] MEDS ORDERED: MORPHINE SULFATE 2 MG/ML CPJ (NOT FOR IM USE) IV PRN (10:45)
[2019-11-09 20:00] VITALS: BP 97/34
[2019-11-10 00:13] VITALS: BP 108/46
[2019-11-10 04:45] VITALS: BP 80/24
[2019-11-10] MEDS: SODIUM CHLORIDE 45ML SPRAY NS SCH ×4 (06:00→23:46)
[2019-11-10 08:00] VITALS: BP 67/29
[2019-11-10] MEDS: CARVEDILOL 3.125 MG TABLET PO SCH (09:00)
[2019-11-10 12:00] VITALS: BP 88/60
[2019-11-10 16:00] VITALS: BP 65/28
[2019-11-10 20:00] VITALS: BP 60/26
[2019-11-11] MEDS: SODIUM CHLORIDE 45ML SPRAY NS SCH (05:15)
[2019-11-11 08:00] VITALS: BP 54/27
[2019-11-11] MEDS ORDERED: LORAZEPAM 2MG/ML CPJ IV PRN (11:00)
[2019-11-11 12:00] VITALS: BP 84/25
[2019-11-11 16:00] VITALS: BP 54/25
== END 2019-11-11 20:50 | disposition expired | DRG 871 ==
LOC: ER 05:58 → 7EST 10:21 → ENRESERV 10-25 07:39 → CANRESERV 10-25 07:39 → ENRESERV 10-25 21:00 → 7WST 10-28 21:14 → 7EST 10-28 22:02
PROVIDERS: ADMIT Internal Medicine; ATTEND Internal Medicine
PROC: 5A1D70Z Performance of Urinary Filtration, Intermittent, Less than 6 Hours Per Day (ICD-10-PCS; 2019-10-26)
PROC: 5A1D70Z Performance of Urinary Filtration, Intermittent, Less than 6 Hours Per Day (ICD-10-PCS; 2019-10-28)
PROC: 5A1D70Z Performance of Urinary Filtration, Intermittent, Less than 6 Hours Per Day (ICD-10-PCS; 2019-10-31)
PROC: 05HY33Z Insertion of Infusion Device into Upper Vein, Percutaneous Approach (ICD-10-PCS; principal; 2019-11-01)
PROC: B54MZZA Ultrasonography of Right Upper Extremity Veins, Guidance (ICD-10-PCS; 2019-11-01)
DX: A41.89 Other specified sepsis (principal); U07.1 COVID-19; I50.43 Acute on chronic combined systolic (congestive) and diastolic (congestive) heart failure; J12.9 Viral pneumonia, unspecified; N18.6 End stage renal disease; J12.89 Other viral pneumonia; E43 Unspecified severe protein-calorie malnutrition; G82.50 Quadriplegia, unspecified; J96.01 Acute respiratory failure with hypoxia; I13.2 Hypertensive heart and chronic kidney disease with heart failure and with stage 5 chronic kidney disease, or end stage renal disease; I42.9 Cardiomyopathy, unspecified; E87.1 Hypo-osmolality and hyponatremia; D61.818 Other pancytopenia; E44.0 Moderate protein-calorie malnutrition; D68.9 Coagulation defect, unspecified; I82.C22 Chronic embolism and thrombosis of left internal jugular vein; G93.40 Encephalopathy, unspecified; R55 Syncope and collapse; Z66 Do not resuscitate; Z51.5 Encounter for palliative care; E78.5 Hyperlipidemia, unspecified; R62.7 Adult failure to thrive; N40.0 Benign prostatic hyperplasia without lower urinary tract symptoms; K21.9 Gastro-esophageal reflux disease without esophagitis; E78.1 Pure hyperglyceridemia; I73.9 Peripheral vascular disease, unspecified; G90.8 Other disorders of autonomic nervous system; Z53.29 Procedure and treatment not carried out because of patient's decision for other reasons; R00.1 Bradycardia, unspecified; I08.0 Rheumatic disorders of both mitral and aortic valves; L97.529 Non-pressure chronic ulcer of other part of left foot with unspecified severity; Z78.1 Physical restraint status; Z99.2 Dependence on renal dialysis; Z98.1 Arthrodesis status; Z86.718 Personal history of other venous thrombosis and embolism; Z82.49 Family history of ischemic heart disease and other diseases of the circulatory system; Z68.23 Body mass index [BMI] 23.0-23.9, adult; Z79.01 Long term (current) use of anticoagulants
CPT/HCPCS: 36415; 36600; 71045; 76937; 80048; 80053; 82375; 82805; 82962; 83036; 83735; 83880; 84100; 84484; 85025; 85027; 87635; 87804; 92610; 93005; 93971; 96365; 96366; 96367; 96372; 96375; 99291; C1725; C9113; J0692; J1650; J1956; J2270; J3490; J7060; J7070